=== PATIENT | male | born 1955 | race Caucasian/White ===

== ENCOUNTER 2016-03-20 13:06 | Emergency (ER) | payer BC, MEDICAID ==
[2016-03-20] MEDS ORDERED: OPTIRAY 350 100 ML VIAL HMH IV ONE (13:07)
[2016-03-20] MEDS ORDERED: SODIUM CHLORIDE 0.9% 1,000 ML ONE (13:51)
== END 2016-03-20 18:15 | disposition home or self-care (01) ==
LOC: ER 13:06
DX: S00.93XA Contusion of unspecified part of head, initial encounter (principal); S00.91XA Abrasion of unspecified part of head, initial encounter; R27.0 Ataxia, unspecified; W19.XXXA Unspecified fall, initial encounter; Y92.019 Unspecified place in single-family (private) house as the place of occurrence of the external cause; E11.9 Type 2 diabetes mellitus without complications
CPT/HCPCS: 36415; 70450; 70551; 71260; 80053; 80307; 80320; 81003; 82140; 82947; 84439; 84443; 85025; 93005; 96360; 96361